=== PATIENT | male | born 1970 | race Caucasian/White ===

== ENCOUNTER 2020-09-12 15:41 | Emergency (ER) | payer OTHER ==
--- OUTSIDE RECORDS SUMMARY | 2020-09-12 15:43 | XMS REPORT | Continuity of Care Document ---
:1970 Author Organization [facility] t Address [address] [place] [address] Dr. Mejia. [address] [place] [address] Care Team Providers Name Role Phone DR FERMIN Attending Clinician Unavailable DR FERMIN Admitting Clinician Unavailable Problems This patient has no known problems. Allergies, Adverse Reactions, Alerts This patient has no known allergies or adverse reactions. Medications This patient has no known medications. Procedures This patient has no known procedures. Encounters Start End Encounter Admission Attending Care Care Encounter Source Date/Time Date/Time Type Type Clinicians Facility Department ID 2019-06-06 [facility] [id number] [place] 06:[facility]:00 [facility] 2019-06-06 2019-06-06 [facility] [id number] [place] 04:17:00 07:30:00 [facility] 2019-02-14 2019-02-14 [facility] [id number] [place] 05:07:00 06:50:00 [facility] Results This patient has no known results.
[2020-09-12] MEDS ORDERED: TETRACAINE HCL 0.5% 4ML OPTH ONE (16:48)
[2020-09-12] MEDS ORDERED: FLUORESCEIN SODIUM 1 MG/WRAP ONE ×2 (16:48→16:59)
[2020-09-12] MEDS ORDERED: NA CHLORIDE 0.9% 1,000 ML ONE ×2 (16:58→17:07)
--- NOTE | 2020-09-12 17:57 | EDPHYS ---
Physician Documentation [facility] Name: Pradeep Rod Age: 50 yrs Sex: Male : 1970 Arrival Date: 09/12/2020 Time: 15:42 Bed 15 Private MD: ED Physician Herberth Hollingsworth HPI: 09/12 16:25 This 50 yrs old Male presents to ER via Ambulatory with complaints of pm1 Chemical Exposure In Eye. 16:25 The patient is experiencing pain, to the left eye, caused by chemicals. Onset: The pm1 symptoms/episode began/occurred today. Duration: the symptoms are continuous. Aggravated by nothing. Alleviated by eye flush. Associated signs and symptoms: Pertinent negatives: vision changes. Patient wears soft contacts. Severity of symptoms: in the emergency department the symptoms have improved. The patient has not experienced similar symptoms in the past. Saw MD on telemedicine who recommended evaluation at the ER to rule out corneal abrasion. Historical: - Allergies: 15:55 No Known Allergies; jd3 - Home Meds: 15:55 Levoxyl Oral [Active]; jd3 - PMHx: 15:55 bleeding stomach ulcers; jd3 - PSHx: 15:55 abdominal sx; left foot; jd3 - Immunization history:: Adult Immunizations up to date, Client reports receiving the 2nd dose of the Covid vaccine. - Social history:: Smoking status: Patient denies any tobacco usage or history of. ROS: 16:25 Constitutional: Negative for fever, chills, and weight loss. pm1 16:25 ENT: Negative for injury, pain, and discharge, No inhalation of chemical dust Neck: Negative for injury, pain, and swelling, Cardiovascular: Negative for chest pain, palpitations, and edema, Respiratory: Negative for shortness of breath, cough, wheezing, and pleuritic chest pain, Abdomen/GI: Negative for abdominal pain, nausea, vomiting, diarrhea, and constipation, MS/Extremity: Negative for injury and deformity, Skin: Negative for injury, rash, and discoloration. 16:25 Eyes: Positive for pain, redness, of the left eye, Negative for vision loss. Exam: 17:01 Eyes: Periorbital structures: appear normal, Pupils: no acute changes, Extraocular pm1 movements: no acute changes, Conjunctiva: injected, in the left eye, Corneas: abrasion, is not appreciated, foreign body, is not appreciated, a fluorescein strip employed to appreciate the findings, bilaterally, Sclera: no appreciated abnormality, no acute changes, Lids and lashes: appear normal, pH 7.0 bilaterally. 17:01 Constitutional: This is a well developed, well nourished patient who is awake, alert, pm1 and in no acute distress. Head/Face: Normocephalic, atraumatic. 17:01 Skin: Warm, dry with normal turgor. Normal color with no rashes, no lesions, and no evidence of cellulitis. MS/ Extremity: Pulses equal, no cyanosis. Neurovascular intact. Full, normal range of motion. 17:01 Cardiovascular: Rate: normal, Rhythm: regular, Pulses: no pulse deficits are appreciated. 17:01 Respiratory: Exam negative for acute changes, respiratory distress, shortness of breath. 17:01 Neuro: Exam negative for acute changes, Orientation: is normal, Mentation: is normal, Motor: is normal, moves all fours. Vital Signs: 15:55 BP 136 / 91; Pulse 68; Resp 16 S; Temp 97.7(O); Pulse Ox 100% on R/A; Weight 83.91 kg jd3 (R); Height 6 ft. 5 in. (195.58 cm) (R); Pain 2/10; 15:55 Body Mass Index 21.94 (83.91 kg, 195.58 cm) jd3 Visual Acuity: 18:41 Left Eye Visual acuity 20/30, Pupil size 3 mm, Normal, React To Light, Reactive To zb Accomodation; Right Eye Visual acuity 20/30, Pupil size 3 mm, Normal, React To Light, Reactive To Accomodation; Both Eyes Visual acuity 20/30; Without Lenses; MDM: 16:05 Patient medically screened. pm1 17:54 Data reviewed: vital signs. Data interpreted: Pulse oximetry: on room air is 100 %. pm1 Interpretation: normal. Counseling: I had a detailed discussion with the patient and/or guardian regarding: the historical points, exam findings, and any diagnostic results supporting the discharge/admit diagnosis, the need for outpatient follow up, an opthalmologist, to return to the emergency department if symptoms worsen or persist or if there are any questions or concerns that arise at home. 09/12 16:14 Order name: Visual Acuity; Complete Time: 18:34 pm1 09/12 16:14 Order name: Eye Tray; Complete Time: 16:32 pm1 09/12 16:14 Order name: Fluoresene Opth strip; Complete Time: 16:32 pm1 09/12 16:16 Order name: Misc. 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 Exp: zb 09/11/2021. Lot #: [id number]. } Route: IM; Site: right deltoid; 18:34 Follow up: Response: No adverse reaction; No change in condition zb Disposition: 09/13 08:55 Co-signature as Attending Physician, Herberth Hollingsworth MD I agree with the assessment and [facility] plan of care. Disposition: 09/12/20 17:57 Discharged to Home. Impression: Conjunctivitis - left eye, Contact with and (suspected ) exposure to other hazardous substances - left eye. - Condition is Stable. - Discharge Instructions: Chemical Conjunctivitis, Adult, How to Use Eye Drops and Eye Ointments. - Prescriptions for Vigamox 0.5 % Ophthalmic Drops - instill 1 drop by OPHTHALMIC route every 8 hours for 7 days; 5 milliliter. - Medication Reconciliation Form, Thank You Letter, Antibiotic Education, Prescription Opioid Use form. - Follow up: Emergency Department; When: As needed; Reason: Worsening of condition. Follow up: Private Physician; When: 1 - 2 days; Reason: Recheck today's complaints, Continuance of care, Re-evaluation by your physician. - Problem is new. - Symptoms have improved. Signatures: Herberth Hollingsworth MD MD cha Marinas, Patrick, NP FISH PROCESSOR pm1 Bhupinder Gupta RN RN Sierra Gaona RN RN zb Corrections: (The following items were deleted from the chart) 09/12 17:58 17:57 09/12/2020 17:57 Discharged to Home. Impression: Contact with and (suspected ) pm1 exposure to other hazardous substances - left eye. Condition is Stable. Forms are Medication Reconciliation Form, Thank You Letter, Antibiotic Education, Prescription Opioid Use. Follow up: Emergency Department; When: As needed; Reason: Worsening of condition. Follow up: Private Physician; When: 1 - 2 days; Reason: Recheck today's complaints, Continuance of care, Re-evaluation by your physician. Problem is new. Symptoms have improved. pm1 18:43 17:58 09/12/2020 17:57 Discharged to Home. Impression: Conjunctivitis - left eyeContact zb with and (suspected ) exposure to other hazardous substances - left eye. Condition is Stable. Discharge Instructions: How to Use Eye Drops and Eye Ointments, Chemical Conjunctivitis, Adult. Prescriptions for Vigamox 0.5 % Ophthalmic Drops - instill 1 drop by OPHTHALMIC route every 8 hours for 7 days; 5 milliliter. and Forms are Medication Reconciliation Form, Thank You Letter, Antibiotic Education, Prescription Opioid Use. Follow up: Emergency Department; When: As needed; Reason: Worsening of condition. Follow up: Private Physician; When: 1 - 2 days; Reason: Recheck today's complaints, Continuance of care, Re-evaluation by your physician. Problem is new. Symptoms have improved. pm1
--- NOTE | 2020-09-12 17:57 | ER ---
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 i took out my contacts and ran them under water for 10-15 mins, but the jessica doc told me to come on in, just in case.". Coronavirus screen: At this time, the client does not indicate any symptoms associated with coronavirus-19. Ebola Screen: Patient negative for fever greater than or equal to 101.5 degrees Fahrenheit, and additional compatible Ebola Virus Disease symptoms. Initial Sepsis Screen: Does the patient meet any 2 criteria? No. Patient's initial sepsis screen is negative. Does the patient have a suspected source of infection? No. Patient's initial sepsis screen is negative. Risk Assessment: Do you want to hurt yourself or someone else? Patient reports no desire to harm self or others. Onset of symptoms was September 12, 2020. 15:52 Method Of Arrival: Ambulatory [facility] 15:52 Acuity: MARITZA 3 jd3 Triage Assessment: 18:41 General: Behavior is. zb Historical: - Allergies: 15:55 No Known Allergies; jd3 - Home Meds: 15:55 Levoxyl Oral [Active]; jd3 - PMHx: 15:55 bleeding stomach ulcers; jd3 - PSHx: 15:55 abdominal sx; left foot; jd3 - Immunization history:: Adult Immunizations up to date, Client reports receiving the 2nd dose of the Covid vaccine. - Social history:: Smoking status: Patient denies any tobacco usage or history of. Screenin:26 Abuse screen: Denies threats or abuse. Denies injuries from another. Nutritional zb screening: No deficits noted. Tuberculosis screening: No symptoms or risk factors identified. Fall Risk None identified. Assessment: 16:25 Reassessment: spoke to Angelo from poison control states that patient will need zb remedial teacher consult as well. CN# [id number]. 16:30 General: Appears in no apparent distress. Pain: Complains of pain in left eye Pain zb currently is 3 out of 10 on a pain scale. Quality of pain is described as aching. Neuro: Level of Consciousness is awake, alert, obeys commands, Oriented to person, place, time, situation. Cardiovascular: Patient's skin is warm and dry. Respiratory: Airway is patent Respiratory effort is even, unlabored, Respiratory pattern is regular, symmetrical. EENT: Eyes are tearing on left eye Sclera/Cornea are reddened in left eye. Derm: Skin is intact, is healthy with good turgor, Skin is dry, Skin is pink, warm \\T\\ dry. normal. Musculoskeletal: Range of motion: intact in all extremities. 17:13 Reassessment: bilateral eye irrigation continued. zb 17:45 Reassessment: eye irrigation completed. zb 18:34 Reassessment: Patient appears in no apparent distress at this time. Patient and/or zb family updated on plan of care and expected duration. Pain level reassessed. Patient is alert, oriented x 3, equal unlabored respirations, skin warm/dry/pink. visual acuity performed. patient and ambulated outside. Vital Signs: 15:55 BP 136 / 91; Pulse 68; Resp 16 S; Temp 97.7(O); Pulse Ox 100% on R/A; Weight 83.91 kg jd3 (R); Height 6 ft. 5 in. (195.58 cm) (R); Pain 2/10; 15:55 Body Mass Index 21.94 (83.91 kg, 195.58 cm) jd3 Visual Acuity: 18:41 Left Eye Visual acuity 20/30, Pupil size 3 mm, Normal, React To Light, Reactive To zb Accomodation; Right Eye Visual acuity 20/30, Pupil size 3 mm, Normal, React To Light, Reactive To Accomodation; Both Eyes Visual acuity 20/30; Without Lenses; ED Course: 15:42 Patient arrived in ED. am2 15:53 Triage completed. jd3 15:54 Tom Patricia NP is PHCP. pm1 15:54 Herberth Hollingsworth MD is Attending Physician. pm1 15:55 Arm band placed on. jd3 16:18 Brown, Sierra, RN is Primary Nurse. zb 16:27 Patient has correct armband on for positive identification. Placed in gown. Bed in low zb position. Call light in reach. Adult w/ patient. Pulse ox on. NIBP on. Door closed. Noise minimized. 17:12 Eye irrigation of both eyes w/ Matthew lens with 1 liter normal saline, Patient zb tolerated well. 18:40 Assist provider with eye exam of both eyes. using fluorescein stain, Performed by laron Patricia NP Patient tolerated well. Patient did not have IV access during this emergency room visit. 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 Exp: zmarleny 09/11/2021. Lot #: [id number]. } Route: IM; Site: right deltoid; 18:34 Follow up: Response: No adverse reaction; No change in condition zb Outcome: 17:57 Discharge ordered by . pm1 18:41 Discharged to home ambulatory. zb 18:41 Condition: stable 18:41 Discharge instructions given to patient, Instructed on discharge instructions, follow up and referral plans. Demonstrated understanding of instructions, follow-up care, medications, Prescriptions given X 1. 18:43 Patient left the ED. laron Signatures: Tom Patricia NP WEB SERVICES MANAGER pm1 Izabel Bell am2 Bhupinder Gupta RN RN jd3 Brown, Zipporah, RN RN zmarleny
[2020-09-12] MEDS ORDERED: TETANUS & DIPHTHERIA TOX,ADULT 0.5 ML VIAL ONE (18:08)
[2020-09-12 18:48] VITALS: BP 136/91; TEMP 97.7; O2SAT 100
== END 2020-09-12 18:43 | disposition home or self-care (01) ==
LOC: ER 15:41
DX: H10.9 Unspecified conjunctivitis (principal); Z77.29 Contact with and (suspected) exposure to other hazardous substances; Z23 Encounter for immunization
CPT/HCPCS: 90714; J7030 ×2; 90471; 99284